=== PATIENT | female | born 1995 | race Caucasian/White ===

== ENCOUNTER 2023-07-21 13:05 | Emergency (ER) | payer BC ==
[~2023-07-21] VITALS: Ht 142.2 cm; Wt 81.6 kg
[2023-07-21 13:10] VITALS: BP_SYST 136; PULSE 84; RESP 18; TEMP 98.4; O2SAT 100
[2023-07-21 13:44] VITALS: BP_SYST 132; PULSE 82; RESP 16; TEMP 98.3; O2SAT 100
== END 2023-07-21 13:43 ==
LOC: SED 13:05
DX: S69.91XA Unspecified injury of right wrist, hand and finger(s), initial encounter (principal); Z88.0 Allergy status to penicillin; Z79.899 Other long term (current) drug therapy; W19.XXXA Unspecified fall, initial encounter; Y93.89 Activity, other specified; Y92.89 Other specified places as the place of occurrence of the external cause; Y99.8 Other external cause status
CPT/HCPCS: 73090; 99283